=== PATIENT | female | born 2000 | race Caucasian/White ===

== ENCOUNTER 2021-09-29 14:56 | Day surgery (SDC) | payer OTHER ==
[~2021-09-29] VITALS: Ht 165.1 cm; Wt 85.6 kg
[2021-09-29] MEDS ORDERED: PERCOCET 325 MG1 TA2 PO (15:24)
[2021-09-29 15:40] VITALS: BP 120/90; PULSE 93; TEMP 98.4
--- NOTE | 2021-09-29 19:41 | NUR ---
Pt to floor at approximately 1850. Pt A&Ox4, assessment completed. Pt has ambulated and urinated; urine is yellow and clear. Critieria for discharge has been met. Call light within reach.
[2021-09-29 19:54] VITALS: BP 107/79; PULSE 86; TEMP 98.7
--- NOTE | 2021-09-29 21:10 | NUR ---
Pt has met criteria for discharge. Pt urinated without difficulty and urine was yellow with no signs of sediment. Pts L hand IV removed without issues. Pt education provided, pt had no questions or concerns. Pt walked out with PCT to personal vehicle, where a friend picked her up. All other needs met at this time.
== END 2021-09-29 20:05 | disposition home or self-care (01) ==
LOC: SDCO 14:56 → SURG 19:23 → SDCO 20:05
DX: Z96.0 Presence of urogenital implants (principal)
CPT/HCPCS: OP; C1769; J0690; J1100; J2405; J2704; J3010; J7120